=== PATIENT | female | born 1960 | race Caucasian/White ===

== ENCOUNTER 2016-08-28 05:36 | Day surgery (SDC) | payer OTHER ==
--- NOTE | ~2016-08-28 | EGD ---
EGD REPORT [facility] [address] [id number] NAME: TRISH EUCEDA : [birth year] STATUS : REG [facility]#: [id number] AGE: 56 ADM/REG DATE : 08/28/16 MR#: [id number] REPORT SERV DATE: 08/28/16 DICTATED BY: AMIE ALEJANDRO DATE: 08/28/16 REPORT STATUS : Draft TRANSCRIBED BY: [facility] DATE: 08/28/16 Endoscopy Center Patient Name: Trish Euceda Date of : 1960 Attending MD: AMIE ALEJANDRO, Procedure Date No Time: 08/28/2016 Procedure: Colonoscopy Indications: Screening for colorectal malignant neoplasm Referring MD: SHARMILA CAGLE Medicines: Monitored Anesthesia Care Complications: No immediate complications. Estimated blood loss: None. Procedure: Pre-Anesthesia Assessment: - ASA Grade Assessment: II - A patient with mild systemic disease. After I obtained informed consent, the scope was passed under direct vision. Throughout the procedure, the patient's blood pressure, pulse, and oxygen saturations were monitored continuously. The PCF [id number] was introduced through the anus and advanced to the cecum, identified by appendiceal orifice and ileocecal valve. The colonoscopy was performed without difficulty. The patient tolerated the procedure well. The quality of the bowel preparation was good. Findings: The perianal and digital rectal examinations were normal. Multiple small-mouthed diverticula were found in the sigmoid colon, in the descending colon, in the transverse colon and in the ascending colon. Three sessile polyps were found in the transverse colon. The polyps were 3 to 6 mm in size. These polyps were removed with a cold snare. Resection and retrieval were complete. Verification of patient identification for the specimen was done. Estimated blood loss was minimal. Two sessile polyps were found in the rectum. The polyps were 3 to 4 mm in size. These polyps were removed with a cold snare. Resection and retrieval were complete. Verification of patient identification for the specimen was done. Estimated blood loss was minimal. The exam was otherwise without abnormality on direct and retroflexion views. Impression: - Diverticulosis in the sigmoid colon, in the descending colon, in the transverse colon and in the ascending colon. - Three 3 to 6 mm polyps in the transverse colon. Resected and retrieved. EGD REPORT [place] [id number] [facility] [place]. [address] NAME: TRISH EUCEDA : [birth year] STATUS : REG [facility]#: [id number] AGE: 56 ADM/REG DATE : 08/28/16 MR#: [id number] REPORT SERV DATE: 08/28/16 DICTATED BY: AMIE ALEJANDRO DATE: 08/28/16 REPORT STATUS : Draft TRANSCRIBED BY: [facility] DATE: 08/28/16 - Two 3 to 4 mm polyps in the rectum. Resected and retrieved. - The examination was otherwise normal on direct and retroflexion views. Recommendation: - Patient has a contact number available for emergencies. The signs and symptoms of potential delayed complications were discussed with the patient. Return to normal activities tomorrow. Written discharge instructions were provided to the patient. - Return to previous diet. - Await pathology results. - Repeat colonoscopy for surveillance based on pathology results. - Continue present medications. Procedure Code(s): --- Professional --- 90543, Colonoscopy, flexible, proximal to splenic flexure; with removal of tumor(s), polyp(s), or other lesion(s) by snare technique Diagnosis Code(s): --- Professional --- K57.30, Diverticulosis of large intestine without perforation or abscess without bleeding K62.1, Rectal polyp D12.3, Benign neoplasm of transverse colon Z12.11, Encounter for screening for malignant neoplasm of colon CPT copyright 2013 [employer]. All rights reserved. The codes documented in this report are preliminary and upon medical biller/coder review may be revised to meet current compliance requirements. AMIE ALEJANDRO, 08/28/2016 8:12 AM Number of Addenda: 0 Note Initiated On: 08/28/2016 7:41 AM Scope Withdrawal Time 0 hours 14 minutes 13 seconds [id number] [place] [id number]
[~2016-08-28 05:36] MED LIST: ALBUTEROL0.083 % INH; ASTELIN NAS; DURA25 TOP; ESTRACE0.5 MG PO; IPRATROPIUM BROMIDE; KDUR20 PO; KLONO5 PO; L40 PO; LEVOTHYROXIN100 MCG PO; PERCOCET 10/3251 TAB PO; PRILOSEC40 MG PO; VENTOLIN HFA INH; ZANAFLEX 4 MG TA4 MG PO; ZESTRIL10 MG PO; ZOCOR10 PO; [UNRECOGNIZED DRUG - CODE] PO
== END 2016-08-28 23:59 | disposition home health service (06) ==
LOC: DMU 05:36
PROVIDERS: Internal Medicine Gastroenterology
PROC: 0DBP8ZZ Excision of Rectum, Via Natural or Artificial Opening Endoscopic (ICD-10-PCS; 2016-08-28)
PROC: 0DBL8ZZ Excision of Transverse Colon, Via Natural or Artificial Opening Endoscopic (ICD-10-PCS; principal; 2016-08-28 07:30)
DX: Z12.11 Encounter for screening for malignant neoplasm of colon (principal); D12.3 Benign neoplasm of transverse colon; K57.30 Diverticulosis of large intestine without perforation or abscess without bleeding; K62.1 Rectal polyp; E03.9 Hypothyroidism, unspecified; I10 Essential (primary) hypertension; J44.9 Chronic obstructive pulmonary disease, unspecified; F41.9 Anxiety disorder, unspecified; Z88.8 Allergy status to other drugs, medicaments and biological substances; F17.200 Nicotine dependence, unspecified, uncomplicated; Z90.710 Acquired absence of both cervix and uterus; Z90.49 Acquired absence of other specified parts of digestive tract; Z98.890 Other specified postprocedural states
CPT/HCPCS: 88305